=== PATIENT | female | born 1955 | race Caucasian/White ===

== ENCOUNTER → 2018-01-05 08:57 | Outpatient (CLI) | payer OTHER, SELFPAY ==
--- NOTE | 2018-01-05 09:06 | MM_ITS ---
[facility] [place] mamm implant BI CAD CAD Screening ORDERING PHYSICIAN : Sagrario Laurent PATIENT AGE: 62 years GENDER: Female COMPARISON: Previous mammograms: November 2016 & also December 2016 INDICATION: Bilateral breast implants initial 2008 and revision December 2016. No hormones no new complaints. Noncontributory family history . TECHNIQUE: Kendrick technique utilized. CC & MLO images were obtained of the breast tissue overlying implant, as well as a second set of images including the breast implant. Mammography is inherently limited due to the implants is a could obscure areas of breast R2 CAD reviewed Implant scar is noted at the inferior right and left breast as well as periareolar postsurgical changes. . FINDINGS: No significant appearing new findings. RIGHT & LEFT BREAST. No new areas of concern in either breast :Overlying breast tissue appears similar and overall satisfactory. Prior comparison studies as well as today's multiple views are helpful and speak against any persistent new density or significant new finding. But Of minimal density in the lateral retroareolar region is remain stable since 2016 and I believe merely reflect some mild ductal prominence extending superior lateral from the nipple. ==IMPRESSION: ====== No significant new findings Bilateral breast implants limit mammography but no overlying breast tissue appears stable Recommend bilateral follow-up in one year BI-RADS Category: 2 Benign Finding(s) RECOMMENDED FOLLOW-UP: 1YR - 1 YEAR FOLLOW-UP (A letter has been sent to the patient regarding results of the study.)
== END ==
PROVIDERS: PCP Internal Medicine; Visit Provider Internal Medicine
DX: Z12.31 Encounter for screening mammogram for malignant neoplasm of breast (principal)
CPT/HCPCS: 77067

== ENCOUNTER → 2019-02-01 10:12 | Outpatient (CLI) | payer OTHER, SELFPAY ==
--- NOTE | 2019-02-01 10:23 | MM_ITS ---
MM [facility] mamm implant BI CAD ORDERING PHYSICIAN : Sagrario Laurent PATIENT AGE: 63 years GENDER: Female COMPARISON: November 2016, December 2017, December 2015, INDICATION: ITS routine annual screening mammogram. Bilateral breast implants. No hormones. No new complaints. Noncontributory family history. Bilateral breast implants since 2008, with both revised in December 2016 TECHNIQUE: Kendrick technique utilized. CC & MLO images were obtained of the breast tissue overlying implant, as well as a second set of images including the breast implant. Mammography is inherently limited due to the implants is a could obscure areas of breast R2 CAD reviewed. FINDINGS: Bilateral breast implants are again noted. Apparently both revised in December 2016. Implants to] Areas of Moderate breast density in the tissues overlying the breast implants. Prior films are helpful and supportive stable appearance bilaterally with no new areas of significant concern either breast when all images reviewed. Moderate ductal prominence retroareolar region bilateral again noted. Minimal fibroglandular elements towards upper-outer quadrant. I would note that Areas of density seen on one image dissipate on another view supporting summation shadows & fibroglandular elements No suspicious calcifications in either breast. IMPRESSION: Stable mammogram. Bilateral breast implants are again noted. No significant new areas of concern in the overlying breast tissue . Bilateral follow-up in one year recommended BI-RADS Category: 2 Benign Finding(s) RECOMMENDED FOLLOW-UP: 1YR 1 YEAR FOLLOW-UP (A letter has been sent to the patient regarding results of the study.)
== END ==
PROVIDERS: PCP Internal Medicine; Visit Provider Internal Medicine
DX: Z12.31 Encounter for screening mammogram for malignant neoplasm of breast (principal)
CPT/HCPCS: 77067

== ENCOUNTER 2020-08-02 15:51 | Emergency (ER) | payer OTHER, SELFPAY ==
--- NOTE | 2020-08-02 16:01 | XR_ITS ---
PROCEDURE: XR SHOULDER RT MIN 2V CLINICAL INDICATION: FALL Posttraumatic pain COMPARISON: No exams were available for comparison FINDINGS: No fracture or dislocation. No lytic or blastic change. There is normal mineralization. Minimal osteoarthritic change of the AC joint and glenohumeral joint. There is mild downsloping of the acromion with mild subacromial stenosis. Other findings:None. IMPRESSION: Mild osteoarthritic change with subacromial stenosis Dictated by: Viktor Chowdhury MD 08/02/2020 16:40 Viktor Chowdhury MD in [place] 08/02/2020 16:40
[2020-08-02 16:08] VITALS: BP 122/69; PULSE 76; RESP 18; TEMP 36.4; O2SAT 99; BMI 30.7
--- NOTE | 2020-08-02 16:21 | HMH.EDUTC ---
[facility] [place] Clinical Impression: Shoulder pain, right Qualifiers: Chronicity: acute Qualified Code(s): M25.511 - Pain in right shoulder Disposition: Home, Self-Care Condition on Discharge: Good Instructions: How to Use a Sling, How To Perform RICE (Rest, Ice, Compress, Elevate), DI for Shoulder Sprain Additional Instructions: *RICE, Rest the extremity, Ice 15-20 minutes 3-4 times daily, Compress- wear the wellington wrap as discussed as much as possible to help reduce swelling and pain, Elevate the extremity when at rest *Wellington wrap is for support and help control swelling, use it except in the shower. Be sure that is not to tight but not to loose either *Elevate when resting *Ibuprofen every 6-8 hours as needed for pain an inflammation. If need something more can take Tylenol in between doses of Ibuprofen to help Call back to the [facility] later this evening and see if the Radiologist has done the official reading of your xray Call Dr Rodriguez office for appointment if pain continues or worsens Return if needed Straight to ER if any life threatening symptoms Follow up with Family Doctor for further treatment and evaluation Referrals: PCP,No [Primary Care Provider] - As needed Dennis Rodriguez MD [Staff Physician] - (Call office tomorrow for appointment) Time of Disposition: 16:40 Medical Decision Making - Qasim Inquiry Pt receiving controlled substance: Denita Tripp was queried for this patient: No Vital Signs: 08/02/20 16:08 08/02/20 16:44 Temperature 97.6 F 97.6 F Temperature Source Oral Oral Pulse Rate 76 Pulse Rate [Right Brachial] 76 Respiratory Rate 18 18 Blood Pressure 122/69 Blood Pressure [Right Arm] 122/69 Blood Pressure Mean [Right Arm] 86 Blood Pressure Source Automatic Cuff Blood Pressure Source [Right Arm] Automatic Cuff Blood Pressure Position Sitting Blood Pressure Position [Right Arm] Sitting 02 Sat by Pulse Oximetry 99 Oxygen Delivery Method Room Air - Radiology Data #1 Image(s): Shoulder Image Reviewed: Yes I reviewed the patient's radiology image w/the ED provider Preliminary Findings: No Fracture Seen [facility] [place] - General Stated complaint: AO 08/02 1500 fell injured Rshoulder Time Seen by Provider: 08/02/20 16:21 Mode of Arrival: Ambulatory Source of Information: Patient Limitations: No Limitations Description of Symptoms (Recalled from Triage Doc. by RN): Pt states that she fell at home on wet concrete and injured her rt shoulder today @1500 HEENT Symptoms (Recalled from RN notes): No Resp Symptoms (Recalled from RN notes): No Skin Symptoms (Recalled from RN notes): No MS Symptoms (Recalled from RN notes): Yes Functional Status (Recalled from RN notes): wnl - History of Present Illness Provider Complaint: Patient states that she was walking in her driveway at home and it has some water that runs across and sometimes gets slick [place] on it and she slipped and fell and landed on her right shoulder area States that ever since she has been having pain in her right shoulder area when she tries to raise her arm Denies any other injury - Related Data Allergies Allergy/AdvReac Type Severity Reaction Status Date / Time No Known Allergies Allergy Verified 08/02/20 16:14 - Worker's Comp Is this a Worker's Comp case?: No [facility] History - Hepatitis A Screen Drug use history?: No High risk sexual behaviors?: No History of sexually transmitted infection?: No Currently employed?: No Childcare worker?: No Do you have indoor plumbing?: Yes Do you have electricity?: Yes Attestation statement:: This patient has been screened for Hepatitis A risk factors. I have reviewed the patient's past medical history: Yes Medical History: Denies:: Cancer, Diabetes Mellitus Type 1, Diabetes Mellitus Type 2, MRSA Amputation: No Fractures: No - Social History Smoking Status: Never smoker Alcohol Intake: never Occupational Status: employed ROS Obtained: Yes All systems reviewed & no addit
[2020-08-02 16:44] VITALS: BP 122/69; PULSE 76; RESP 18; TEMP 36.4; O2SAT 99
== END 2020-08-02 16:45 | disposition home or self-care (01) ==
PROVIDERS: Emergency Provider Nurse Practitioner
DX: M25.511 Pain in right shoulder (principal); W01.0XXA Fall on same level from slipping, tripping and stumbling without subsequent striking against object, initial encounter; Y92.014 Private driveway to single-family (private) house as the place of occurrence of the external cause
CPT/HCPCS: 73030; 99201